=== PATIENT | male | born 1960 ===

== ENCOUNTER 2017-04-05 14:10 | Outpatient (RCR) | payer MEDICARE, OTHER | END 2017-04-12 | disposition home or self-care (01) | LOC: WCC 14:10 | DX: L89.324 Pressure ulcer of left buttock, stage 4 (principal); L89.314 Pressure ulcer of right buttock, stage 4; M86.00 Acute hematogenous osteomyelitis, unspecified site | CPT/HCPCS: 11043; 11044; 87070; 87181; 87205; 97605 ==

== ENCOUNTER 2017-04-05 15:53 | Outpatient (CLI) | payer MEDICARE, OTHER ==
[2017-04-05 16:43] LABS: BASOPHILS % (AUTO) 1.2 % (0.0-2.0); EOSINOPHILS % (AUTO) 2.7 % (0.0-3.0); LYMPHOCYTES % (AUTO) 31.8 % (20.0-45.0); MEAN CORPUSCULAR HEMOGLOBIN 32.3 PG (27.0-31.0); MEAN CORPUSCULAR HGB CONC 33.8 G/DL (32.0-36.0); MEAN CORPUSCULAR VOLUME 95 FL (80-99); MONOCYTES % (AUTO) 5.6 % (1.0-10.0); NEUTROPHILS % (AUTO) 58.7 % (45.0-75.0); PLATELET COUNT 196 K/UL (150-450); RED BLOOD COUNT 4.02 M/UL (4.70-6.10); RED CELL DISTRIBUTION WIDTH 14.1 % (11.6-14.8); WHITE BLOOD COUNT 5.3 K/UL (4.8-10.8)
[2017-04-05 16:44] LABS: ANION GAP 12 (5-15); CALCIUM 8.8 mg/dL (8.6-10.2); CARBON DIOXIDE 23 mEQ/L (20-30); CHLORIDE 103 mEQ/L (98-107); CREATININE 0.5 mg/dL (0.7-1.2); GLOMERULAR FILTRATION RATE > 60 mL/min (>60); HEMOLYSIS 3; POTASSIUM 4.5 mEQ/L (3.4-4.9); SODIUM 138 mEQ/L (135-145)
== END 2017-04-05 17:53 | disposition home or self-care (01) ==
LOC: LAB 15:53
DX: M86.9 Osteomyelitis, unspecified (principal); L89.324 Pressure ulcer of left buttock, stage 4; L89.314 Pressure ulcer of right buttock, stage 4
CPT/HCPCS: 36415; 80048; 84134; 85025

== ENCOUNTER 2017-04-07 10:30 | Outpatient (CLI) | payer MEDICARE, MEDICAID ==
--- NOTE | 2017-04-09 10:50 | Diagnostic Imaging Report ---
Indication: Nonhealing ulcers of the pelvis near the ischial tuberosities Technique: Coronal, axial, and sagittal T1 fast spin echo, fast spin-echo IR sequences obtained of the pelvis Comparison: None Findings: Bilaterally, high IR, low T1 signal is seen in the ischial tuberosities. There is also abnormal signal within the proximal semi-tendinosis/semimembranosus muscles. Only mild edema is seen in the inferior buttocks subcutaneous fat on either side. There is fairly extensive edema of the bilateral gluteus paco muscles, and possibly the posterior vastus lateralis muscles, in the region of the greater trochanter and proximal femur. Abnormal high signals also seen in the gluteus medius muscles bilaterally, particularly the left. Abnormal high signal is seen within the bilateral iliacus muscles, fairly symmetric is slightly greater on the right. A small fluid collection is seen in the right groin immediately inferior to the anterior inferior ilium. This measures 2.2 cm transverse by 1.5 cm AP by 4.2 cm craniocaudad. There is a small right hip joint effusion. Irregular fluid collections are also seen in the planes between right-sided adductor muscles. The adductor muscles themselves demonstrate normal signal. There is increased signal within the left-sided adductor musculature. The bilateral external obturator muscles and bilateral pectineus muscles demonstrate mildly high signal. Despite the extensive muscular abnormality, only a slight amount of edema is seen in the subcutaneous fat. This is most notable in the inferior lumbar region subcutaneous fat, and also to a slight degree in the bilateral hips subcutaneous fat, left greater than right. No definite sacral signal abnormality is demonstrated. However, there is apparent discontinuity between the second coccygeal segment and the remainder of the coccyx, with only a single coccygeal segment projected anteriorly to the second coccygeal segment. This demonstrates normal T1 signal, is not sufficiently well-demonstrated to assess for signal abnormality on the IR images. There is some soft tissue edema surrounding the distal coccyx No other osseous signal abnormality is evident. Penile prosthesis is present. There are small fat-containing bilateral inguinal hernias. The bladder is unremarkable. Impression: Abnormal T1 and IR signal within the ischial tuberosities bilaterally. Findings are consistent with osteomyelitis. Extensive abnormal signal consistent with edema within the pelvic, hip, and groin musculature, as detailed above. Findings are consistent with myositis Unusual small fluid collection in the right groin inferior to the anterior inferior ilium. Significance/etiology uncertain. Small abscess not completely excludable. Unusual appearance to the coccyx, probably developmental or acquired. The third coccygeal segment is not previously visualized, pathology not excludable. Plain radiography may be useful for better characterization Some edema of the subcutaneous fat of the left and right hips. This could represent cellulitis versus edema of cardiogenic causes. Edema of the lower lumbar region is a more usual finding, probably related to dependent positioning rather than inflammation Other findings as noted, including the penile prosthesis, small fat-containing bilateral inguinal hernias Findings discussed by phone with Dr. Wise at [id number] on April 01, 2017
--- NOTE | 2017-04-12 22:47 | Infectious Diseases Prog Note ---
Assessment/Plan Problems: (1) Osteomyelitis Assessment & Plan: Wound culture noted. Get a PICC. Ceftriaxone 2 gm IV qday for at least 6 weeks. CBC and CMP qwk while on antibiotics. (2) Pressure ulcer of buttock Assessment & Plan: Infected. Complicated by osteomuelitis. Continue with wound care. (3) Spinal cord injury Assessment & Plan: T5 per patient. GLENNY PELAYO Apr 12, 2017 22:47
== END 2017-04-07 12:30 | disposition home or self-care (01) ==
LOC: MRI 10:30
DX: L98.499 Non-pressure chronic ulcer of skin of other sites with unspecified severity (principal)
CPT/HCPCS: 72195

== ENCOUNTER → 2017-04-13 | Outpatient (CLI) | payer MEDICARE, MEDICAID ==
[~2017-04-13] VITALS: Ht 167.6 cm; Wt 70.3 kg
[~2017-04-13] MED LIST: Dyna-Hex 2% Top Sol 8oz TOPIC SCH; Heparin 2000 units/Ns 1000ml INJ PRN; Lidocaine 1% Plain 30 ml INJ PRN
--- NOTE | 2017-04-13 11:40 | Diagnostic Imaging Report ---
Indications: Long-term central IV access required for intravenous therapy Technique: The procedure indications, risks, and alternatives were explained to the patient who understands and gives consent to proceed. Strict aseptic technique was utilized, including hand washing, use of hat and mask, use of sterile gown and gloves, sterile ultrasound gel and probe cover, prepping of right arm skin with 2% chlorhexidine solution, and application of full body sterile barrier over this area. Skin and subcutaneous soft tissues were infiltrated with 1% lidocaine and sodium bicarbonate. A small dermatotomy was made, through which the patent adequate size right basilic vein was punctured percutaneously under direct sonographic guidance with a 21-gauge needle. Exchange was made over a 0.018 inch guidewire for a 5 [place] peel-away sheath. A [employer] Power-PICC 5 [place] dual lumen central venous catheter was cut to appropriate length, then advanced through the sheath over the guidewire under direct fluoroscopic guidance into the superior vena cava. Guidewire and sheath were removed. Both catheter ports were aspirated, then flushed with heparinized saline. Final image was obtained. Catheter was secured the skin with adhesive dressing. Patient tolerated procedure well without immediate complications. Total fluoroscopy time: 0.1 minutes. Dose-area product: 0.9 dGy-cm2 Findings: Final image demonstrates tip of the central venous catheter at the level of superior vena cava-right atrial junction, 35 cm in from the skin. Both ports aspirate and flush freely. IMPRESSION: Placement of peripherally inserted central venous catheter via right basilic vein, working well.
== END | disposition home or self-care (01) ==
LOC: RAD 10:14
DX: M86.9 Osteomyelitis, unspecified (principal); Z79.899 Other long term (current) drug therapy
CPT/HCPCS: 36569; 76937; J1644; J2001

== ENCOUNTER 2017-04-19 11:00 | Outpatient (RCR) | payer MEDICARE, OTHER | END 2017-05-13 | disposition home or self-care (01) | LOC: WCC 11:00 | DX: L89.324 Pressure ulcer of left buttock, stage 4 (principal); L89.314 Pressure ulcer of right buttock, stage 4; M86.00 Acute hematogenous osteomyelitis, unspecified site; G40.909 Epilepsy, unspecified, not intractable, without status epilepticus; G82.20 Paraplegia, unspecified | CPT/HCPCS: 11042; 11043; 11044 ==

== ENCOUNTER 2017-05-24 11:30 | Outpatient (RCR) | payer MEDICARE, MEDICAID | END 2017-06-12 | disposition home or self-care (01) | LOC: WCC 11:30 | DX: L89.324 Pressure ulcer of left buttock, stage 4 (principal); L89.314 Pressure ulcer of right buttock, stage 4; M86.00 Acute hematogenous osteomyelitis, unspecified site; G82.20 Paraplegia, unspecified | CPT/HCPCS: 97597; G0463 ==

== ENCOUNTER 2017-09-27 10:01 | Outpatient (RCR) | payer MEDICARE, OTHER | END 2017-10-13 | disposition home or self-care (01) | LOC: WCC 10:01 | DX: L89.213 Pressure ulcer of right hip, stage 3 (principal); G82.21 Paraplegia, complete | CPT/HCPCS: 11042; 11045; 15271; Q4133 ==

== ENCOUNTER 2017-10-18 09:39 | Outpatient (RCR) | payer MEDICARE, OTHER | END 2017-11-10 | disposition home or self-care (01) | LOC: WCC 09:39 | DX: L89.213 Pressure ulcer of right hip, stage 3 (principal); G82.21 Paraplegia, complete | CPT/HCPCS: 15271; Q4133 ==

== ENCOUNTER 2017-11-15 09:32 | Outpatient (RCR) | payer MEDICARE, OTHER | END 2017-12-11 | disposition home or self-care (01) | LOC: WCC 09:32 | DX: L89.213 Pressure ulcer of right hip, stage 3 (principal); G82.21 Paraplegia, complete; G40.909 Epilepsy, unspecified, not intractable, without status epilepticus; Z91.018 Allergy to other foods | CPT/HCPCS: G0463 ==

== ENCOUNTER 2018-11-14 09:50 | Outpatient (RCR) | payer MEDICARE, OTHER | END 2018-12-11 | disposition home or self-care (01) | LOC: WCC 09:50 | DX: L97.511 Non-pressure chronic ulcer of other part of right foot limited to breakdown of skin (principal); G82.21 Paraplegia, complete; K62.6 Ulcer of anus and rectum; Z91.018 Allergy to other foods | CPT/HCPCS: G0463 ==